=== PATIENT | female | born 2000 ===

== ENCOUNTER 2021-09-06 11:25 | Inpatient (IN) | payer SELFPAY ==
[2021-09-06 11:30] VITALS: BMI 30.1
[2021-09-06 12:46] VITALS: BP 123/84; PULSE 72; RESP 18; TEMP 36.7; O2SAT 97
--- NOTE | 2021-09-06 13:52 | PC.SOCIAL ---
Patient attended and participated in Group.
[2021-09-06 14:00] VITALS: BP 120/78; PULSE 70; RESP 18; TEMP 36.6; O2SAT 98
[2021-09-06 21:28] VITALS: BP 113/75; PULSE 76; RESP 19; O2SAT 100
[2021-09-07 05:45] VITALS: BP 112/80; PULSE 71; RESP 18; O2SAT 98
--- NOTE | 2021-09-07 08:41 | W.PM.NPUH&PS ---
Providers/Chief Complaint Admitting Physician: Rashaun Patel MD Chief Complaint: SI HPI NPU History of Present Illness Nissa Solano is a 21 year old female admitted through an outside emergency department with the following report: 21-year-old female with a history of depression presents to the emergency department for worsening depression, suicidal ideation with plan.? States that everything is going wrong in her life and she has been having frequent thoughts of wanting to kill herself.? Reports she has a plan to shoot herself.? States that she has access to guns.? States that she does not take any antidepressants and no longer follows up with a counselor or psychiatrist.? She denies any alcohol or drug use.? No homicidal ideation, paranoia or hallucinations.? Denies any other complaints. Affidavit: Patient arrived in the emergency room with worsening depression with suicidal ideation and plan.? States she wants to kill herself with a gun.? Has access to weapons.? She is not currently on any medications.? Does not follow-up with a counselor or psychiatrist.? Reports recent life stressors.? I do not believe she is safe to return home without emergent psychiatric evaluation. She was admitted to the neuropsychiatry unit for definitive treatment of these issues. She said that she had a serious plan to kill herself with a gun. She had been thinking about it for a couple of days. She has had a lot of losses recently. Her mother in 2019. Her mother was a prescription drug addict and was not really there for her as she was growing up or in her teenage years. She was engaged to a [employer] [employer] for about 5 years. Unfortunately, he cheated on her many times. She had already paid for the wedding but called it off last December. She lost $10,000. Her best friend, Augie in a motor vehicle accident in May of last year. She does not really have any other friends where she lives. Her dad is her only friend. He is also him. He has been with her her whole life. He was working all the time because he was supporting his who did not work because of her addictions. Her mom did not help her at all. She cannot participate in sports as a teenager because her father could not afford the money or the time. She was not outcast. She only had 1 or 2 friends back in [place] and only one friend in [place] where they moved in 2016. She is not happy with her job and has a lot of stress there. 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 The landlord where she lives told her that she either had to buy the house or move. All of her family has depression and anxiety. She thinks that her mother took Lexapro. Her sister has bipolar disorder. She will find out what her father takes if it helps him. She really does not want to take medication. She has been in counseling 1000 times . She only took medication 1 time this last May when her friend . She was on Wellbutrin and trazodone. She said that the Wellbutrin caused her to be constipated and have gastritis. The trazodone did work fairly well with her sleep. PAST PSYCHIATRIC HISTORY As above SOCIAL HISTORY As above Meds NPU Allergies Allergy/AdvReac Type Severity Reaction Status Date / Time clindamycin Allergy Unknown Verified 09/06/21 12:52 ibuprofen Allergy Unknown Verified 09/06/21 12:51 naproxen Allergy Unknown Verified 09/06/21 12:52 sumatriptan Allergy Unknown Verified 09/06/21 12:52 Mental Status Exam MSE Comments: This is a 21-year-old female who appears approximately her stated age and is in no acute distress. She is pleasant and cooperative with the evaluation. She is dressed in hospital scrubs with fair grooming. psychomotor activity mildly decreased. Speech is at a regular rate and rhythm, normal volume, good articulation, not pressured. Alert, oriented X3 Attention and concentration appears to be average. Memory is intact Mood is depressed. Affect is mildly dysphoric somewhat constricted Thought process is logical and goal-directed. Thought content: Denies auditory and visual hallucinations. No delusions or paranoia are noted. Continues to have suicidal ideation but no plan in the hospital. no homicidal ideation. Fund of knowledge is average. Insight and judgment appear to be fairly good. Impulse control is fairly good. Vitals/I&O/Wt Last Vital Signs Temp 98 F 09/06/21 14:00 Pulse 71 09/07/21 05:45 Resp 18 09/07/21 05:45 BP 112/80 09/07/21 05:45 Pulse Ox 98 09/07/21 05:45 Weight last 48 hrs Weight 77.111 kg A&P Assessment and plan (1) Major depressive disorder, recurrent episode: Status: Acute (2) Anxiety: Status: Acute (3) Suicidal ideation: Status: Acute Plan This is a 21-year-old female with chronic depression and anxiety with no significant prior treatment who comes in with significant suicidal ideations of shooting herself with a gun. Plan: 1. We will start with trazodone. She will contact her father and find out what antidepressant he has responded to. 2. Continue every 15 minute checks for safety. 3. Encourage individual, group and milieu therapies. 4. Encourage sober living treatment after discharge at the highest level of care to which she is willing to commit. 5. We will monitor for safety for herself in the community prior to discharge. Involuntary Hold Information 96 Hour Hold: 96 Hour Involuntary Admission: No Attestations NPU Medical Necessity Statement*: Inpatient hospitalization is medically necessary and the clinically appropriate intervention at this time. We will initiate medications and make changes as indicated. She will be in the hospital for over 2 midnights. Likely length of stay 4-6 days Coding Level of Care Code Acute Accounting Coordinator for Marley Callahan Diagnoses Major depressive disorder, recurrent episode F33.9 Anxiety F41.9 Suicidal ideation R45.851
[2021-09-07] MEDS: escitalopram 10 mg Tablet PO (13:00)
[2021-09-07 14:00] VITALS: BP 124/85; PULSE 86; RESP 18; TEMP 36.6; O2SAT 99
[2021-09-07] MEDS: nicotine 2 mg Gum BUCCAL (14:23)
[2021-09-07 19:38] VITALS: BP 136/84; PULSE 86; RESP 18; O2SAT 96
[2021-09-07] MEDS: trazodone 50 mg Tablet PO (21:31)
[2021-09-08 06:00] VITALS: BP 105/68; PULSE 91; RESP 16; TEMP 36.7; O2SAT 97
[2021-09-08] MEDS: escitalopram 10 mg Tablet PO (08:01)
[2021-09-08 14:00] VITALS: BP 121/81; PULSE 92; RESP 18; TEMP 36.7; O2SAT 98
--- NOTE | 2021-09-08 15:32 | W.PM.NPUDCS ---
Diagnoses at Discharge Discharge Diagnosis (1) Major depressive disorder, recurrent episode: Status: Acute (2) Anxiety: Status: Acute (3) Suicidal ideation: Status: Acute Reason for Visit Reason for Visit: SI Brief History: History of Present Illness Nissa Solano is a 21 year old female admitted through an outside emergency department with the following report: 21-year-old female with a history of depression presents to the emergency department for worsening depression, suicidal ideation with plan.? States that everything is going wrong in her life and she has been having frequent thoughts of wanting to kill herself.? Reports she has a plan to shoot herself.? States that she has access to guns.? States that she does not take any antidepressants and no longer follows up with a counselor or psychiatrist.? She denies any alcohol or drug use.? No homicidal ideation, paranoia or hallucinations.? Denies any other complaints. Affidavit: Patient arrived in the emergency room with worsening depression with suicidal ideation and plan.? States she wants to kill herself with a gun.? Has access to weapons.? She is not currently on any medications.? Does not follow-up with a counselor or psychiatrist.? Reports recent life stressors.? I do not believe she is safe to return home without emergent psychiatric evaluation. She was admitted to the neuropsychiatry unit for definitive treatment of these issues.? She said that she had a serious plan to kill herself with a gun.? She had been thinking about it for a couple of days.? She has had a lot of losses recently.? Her mother in 2019.? Her mother was a prescription drug addict and was not really there for her as she was growing up or in her teenage years.? She was engaged to a [employer] for about 5 years.? Unfortunately, he cheated on her many times.? She had already paid for the wedding but called it off last December.? She lost $10,000.? Her best friend, Augie in a motor vehicle accident in May of last year.? She does not really have any other friends where she lives.? Her dad is her only friend.? He is also him.? He has been with her her whole life.? He was working all the time because he was supporting his who did not work because of her addictions.? Her mom did not help her at all.? She cannot participate in sports as a teenager because her father could not afford the money or the time.? She was not outcast.? She only had 1 or 2 friends back in [place] and only one friend in [place] where they moved in 2016.? She is not happy with her job and has a lot of stress there.? 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 [facility] told her that she either had to buy the house or move.? All of her family has depression and anxiety.? She thinks that her mother took Lexapro.? Her sister has bipolar disorder.? She will find out what her father takes if it helps him.? She really does not want to take medication.? She has been in counseling 1000 times .? She only took medication 1 time this last May when her friend .? She was on Wellbutrin and trazodone.? She said that the Wellbutrin caused her to be constipated and have gastritis.? The trazodone did work fairly well with her sleep. Hospital Course Hospital Course She slowly acclimated to the individual, group and milieu therapies provided. She is started on Lexapro 10 mg. She tolerated these doses and showed steady improvement during her stay. She was able to contract for safety outside hospital prior to discharge. During the hospitalization, patient had routine laboratory studies which were within normal limits except for few outliers. Additionally there was a general medical evaluation which was also within normal limits and revealed no new acute processes. Discharge Summary: At the time of discharge, lethality was denied and psychosis was resolving. Her father was here and felt that she was doing much better. She is going to stay with him for the next week. They have remove guns from her house. Mood and anxiety were well managed. Patient endorsed a plan to follow-up with the aftercare recommendations of the treatment team. Patient was evaluated and deemed to be absent credible lethality, and had achieved the maximum benefit from an inpatient hospitalization, so was discharged. Involuntary Hold Information 96 Hour Hold: 96 Hour Involuntary Admission: No Mental Status Exam MSE Comments: This is a 21-year-old female who appears approximately her stated age and is in no acute distress. She is pleasant and cooperative with the evaluation. She is dressed in hospital scrubs with fair grooming. psychomotor activity is normal. Speech is at a regular rate and rhythm, normal volume, good articulation, not pressured. Alert, oriented X3 Attention and concentration appears to be average. Memory is intact Mood is good. Affect is euthymic Thought process is logical and goal-directed. Thought content: Denies auditory and visual hallucinations. No delusions or paranoia are noted. denies suicidal ideation. no homicidal ideation. Fund of knowledge is average. Insight and judgment appear to be fairly good. Impulse control is fairly good. Cognition: Patient Appearance: Appropriate Ability to Follow Directions: Excellent Patient Orientation (long list): Person, Place, Time, Name, Month and Year Comprehension Ability: No Impairment Hallucination Type: None Delusion Description: Not Present Thought Process: Appropriate Affect: Affect Description: Anxious, [place] and Depressed Behavior: Patient Behavior: Appropriate and Cooperative Speech Pattern: Appropriate and Clear Discharge Data Vitals: Last Vital Signs Temp 98.0 F 09/08/21 14:00 Pulse 92 09/08/21 14:00 Resp 18 09/08/21 14:00 BP 121/81 09/08/21 14:00 Pulse Ox 98 09/08/21 14:00 Discharge Plan Discharge Patient Disposition: Home Condition: Stable Prescriptions: New escitalopram oxalate 20 mg tablet 20 mg PO DAILY 30 Days Qty: 30 1RF Discharge Orders: Discharge Order (Routine); Ordered 09/08/21 Ordered By: Rashaun Patel Discharge Diet: Regular Discharge Activity: Resume usual activity Patient Instructions: Opioid Safety Discharge Attestations NPU Time Spent in Discharge Care*: greater than 30 min Specific Discharge Activities: Specific discharge activities: educating patient, educating and/or supporting family/caregiver, discussing with home health care case manager/social workers/dc planners, documenting/other paperwork and evaluating patient/reviewing data Coding Level of Care Code Acute g DC note Diagnoses Major depressive disorder, recurrent episode F33.9 Anxiety F41.9 Suicidal ideation R45.851
--- NOTE | 2021-09-09 08:45 | PC.OT ---
OT EVALUATION ORDERS RECEIVED. PATIENT DISCHARGED BEFORE EVALUATION COULD BE COMPLETED
== END 2021-09-08 16:02 | disposition home or self-care (01) | DRG 885 ==
PROVIDERS: Admitting Provider Psychiatry & Neurology Psychiatry; Visit Provider Psychiatry & Neurology Psychiatry
DX: F33.9 Major depressive disorder, recurrent, unspecified (principal); R45.851 Suicidal ideations; F41.9 Anxiety disorder, unspecified; Z81.8 Family history of other mental and behavioral disorders